=== PATIENT | female | born 1980 | race African-American/Black ===

== ENCOUNTER → 2017-06-16 | Day surgery (SDC) | payer OTHER ==
[~2017-06-16] MED LIST: HYDROmorphone 2 MG/ML VIAL IV PRN; IV RINGERS,LACTATED 1000ML 1,000 ML IV SCH; LIDOCAINE 1% PF 2 ML VIAL. ID PRN; LIDOCAINE 2% PF Vial for OR 5 ML VIAL. ONE; MORPHINE SULFATE 2 MG/ML DISP.SYRIN. IV PRN; ONDANSETRON PF 4 MG/2 ML VIAL. IV PRN; PROCHLORPERAZINE 10 MG/2 ML VIAL. IV PRN; PROPOFOL 20 ML IV ONE; fentaNYL PF VIAL 100 MCG/2 ML VIAL IV PRN
[2017-06-16 11:36] LABS: NEG OBC UR NEG; POS OBC UR POS
[2017-06-16 12:25] VITALS: BP 134/88
--- NOTE | 2017-06-16 18:46 | HP ---
ADMIT DATE: 06/16/2017 REASON: Persistent cough and heartburn. HISTORY OF PRESENT ILLNESS: A 36-year-old female whose past medical history is significant for cough and reflux, seen with continued symptoms. OTC remedies had been unhelpful. Chest x-ray has been negative. Symptoms currently persist. Weight and appetite are stable. No dysphagia or odynophagia is elicited with the continued symptoms. She requests additional evaluation. PAST MEDICAL HISTORY: Cough, GERD. ALLERGIES: PENICILLIN AND SHELLFISH. MEDICATIONS: None. SOCIAL HISTORY: She is a nonsmoker. She is a social drinker. FAMILY HISTORY: Noncontributory. PAST SURGICAL HISTORY: Status post breast surgery. REVIEW OF SYSTEMS: Per above. PHYSICAL EXAMINATION: GENERAL: Reveals a well-nourished, well-developed female who is alert, cooperative, in no acute distress. VITAL SIGNS: Temperature 97.6, pulse 78, respiratory rate 18. HEENT: Normocephalic and atraumatic head. Pupils and extraocular movements are not tested. Sclerae anicteric. NECK: Supple. LUNGS: Clear. CARDIOVASCULAR: Reveals S1, S2 without S3, S4 or appreciable murmur. ABDOMEN: Reveals soft abdomen, normal bowel sounds, without appreciable hepatosplenomegaly. No surgical incision. EXTREMITIES: Reveal no cyanosis, clubbing or edema. IMPRESSION: Gastroesophageal reflux disease with cough, etiology is to be determined. Differential includes Saez's, gastroparesis, achalasia. We, therefore, recommend upper endoscopy to further assess. Risks and benefits of procedure including risks of perforation have been discussed with the patient who is willing to proceed at this time. MANA TURNER MD DR: ANUSHA/[email or web address] JOB#: [id number] / [id number]
--- NOTE | 2017-06-19 15:06 | PATHOLOGY ---
PATHOLOGY REPORT * * * * * * * * FINAL DIAGNOSIS: Esophageal biopsies, distal esophagus: - Segments of hyperplastic squamous esophageal mucosa consistent with reflux esophagitis. (JPM:earlene; 06/19/2017) COMMENT: Sections of the distal esophageal biopsy reveal segments of tangentially oriented, mildly hyperplastic squamous esophageal mucosa. The findings are consistent with reflux esophagitis. There is no evidence of Saez's change, dysplasia, or malignancy. (JPM:earlene; 06/19/2017) REPORT ELECTRONICALLY SIGNED BY: Josh Armendariz M.D. DATE/TIME: 06/19/2017 15:06 * * * * * * * * GROSS PATHOLOGY: Received in formalin labeled "Sin Sharpe, distal esophagus BX," are 3 segments of barr soft tissue measuring 0.5 x 0.4 x 0.2 cm in aggregate dimensions and ranging from 0.2 to 0.5 cm in maximum dimension. The specimen is submitted entirely in cassette A1. (TSD; 06/16/2017) INITIAL CPT CODE(S): A; 35472 Professional services performed [place] [address] Technical services performed by [facility] at [address] [place] [address]. SPECIMEN(S) RECEIVED: A.Distal esophagus biopsy CLINICAL HISTORY: Heartburn, GERD, cough; esophagitis PATIENT: SIN SHARPE /AGE: 312/02/1980 (Age: 36) PATIENT #: [id number] ALT CASE #: SPECIMEN COLLECTION DATE: 06/16/2017 SPECIMEN RECEIVED DATE: 06/16/2017 [facility] - [address] [place] [address] - PHONE: [phone] * * * END OF REPORT * * *
== END | disposition home or self-care (01) ==
LOC: ENDOS 10:36
PROVIDERS: ATTEND Internal Medicine Gastroenterology
DX: K21.0 Gastro-esophageal reflux disease with esophagitis (principal); K29.50 Unspecified chronic gastritis without bleeding; Z88.0 Allergy status to penicillin; Z91.013 Allergy to seafood
CPT/HCPCS: 43239; 81025; J2704; 88305; J2001